=== PATIENT | female | born 1995 | race Caucasian/White ===

== ENCOUNTER 2017-07-14 16:58 | Emergency (ER) | payer OTHER ==
[~2017-07-14] VITALS: Ht 170.2 cm; Wt 59.0 kg
[2017-07-14 16:58] VITALS: BP 127/69
[2017-07-14] MEDS ORDERED: IBUPROFEN 400 MG TABLET ONE (17:19)
[2017-07-14] MEDS ORDERED: ACETAMINOPHEN ES 500 MG TABLET ONE (17:20)
[2017-07-14] MEDS ORDERED: ACETAMINOPHEN ES 500 MG TABLET PO ONE (17:30)
[2017-07-14] MEDS ORDERED: IBUPROFEN 400 MG TABLET PO ONE (17:30)
== END 2017-07-14 17:28 | disposition home or self-care (01) ==
LOC: ER 17:01
DX: J02.9 Acute pharyngitis, unspecified (principal); F17.200 Nicotine dependence, unspecified, uncomplicated
CPT/HCPCS: 99283; A4606; Z7610